=== PATIENT | male | born 1965 | race Caucasian/White ===

== ENCOUNTER 2019-04-14 06:33 | Emergency (ER) | payer MEDICARE, MEDICAID ==
[~2019-04-14] VITALS: Ht 172.7 cm; Wt 104.4 kg
[~2019-04-14 06:33] MED LIST: INDO-12 PO
[2019-04-14 06:39] VITALS: BP 172/100
[2019-04-14] MEDS ORDERED: ketorolac trometh. 30mg/ml inj. IM ONE (08:00)
== END 2019-04-14 09:01 | disposition home or self-care (01) ==
LOC: ER 06:34
DX: S20.211A Contusion of right front wall of thorax, initial encounter (principal); R07.89 Other chest pain; W18.30XA Fall on same level, unspecified, initial encounter; Y93.89 Activity, other specified; Y92.89 Other specified places as the place of occurrence of the external cause; Y99.8 Other external cause status; E78.00 Pure hypercholesterolemia, unspecified; I10 Essential (primary) hypertension; E07.9 Disorder of thyroid, unspecified; G89.29 Other chronic pain; F41.9 Anxiety disorder, unspecified; F17.200 Nicotine dependence, unspecified, uncomplicated; F12.10 Cannabis abuse, uncomplicated; Z98.890 Other specified postprocedural states; Z86.73 Personal history of transient ischemic attack (TIA), and cerebral infarction without residual deficits
CPT/HCPCS: 71045; 73030; 96372; 99284; J1885